=== PATIENT | male | born 1985 | race Hispanic/Latino ===

== ENCOUNTER → 2021-05-23 10:01 | Outpatient (CLI) | payer OTHER, SELFPAY ==
--- NOTE | 2021-05-23 | DI.RAD.S_ITS ---
PROCEDURE: XR KNEE RT 3V INDICATIONS: Sprain of unspecified site of right knee, initial TECHNIQUE: 3 views of the knee were acquired. COMPARISON: None. FINDINGS: Bones: No fractures or dislocations. Mild medial femoral tibial compartment osteoarthritis is seen with joint space narrowing and subchondral sclerosis. No suspicious bony lesions. Soft tissues: Small joint effusion is seen. No suspicious soft tissue calcifications. IMPRESSION: Mild medial femoral tibial compartment osteoarthritis and small joint effusion. No fracture or dislocation. Dictated by: Lionel Ware M.D. on 05/23/2021 at 10:55 Approved by: Lionel Wrae M.D. on 05/23/2021 at 10:59
== END ==
PROVIDERS: PCP Chiropractor; Referring Provider Nurse Practitioner Family; Visit Provider Nurse Practitioner Family
DX: S83.91XA Sprain of unspecified site of right knee, initial encounter (principal); M17.11 Unilateral primary osteoarthritis, right knee; M25.461 Effusion, right knee; W19.XXXA Unspecified fall, initial encounter
CPT/HCPCS: 73562